=== PATIENT | male | born 1970 | race African-American/Black ===

== ENCOUNTER 2022-06-24 10:41 | Emergency (ER) | payer MEDICAID ==
[~2022-06-24] VITALS: Ht 175.3 cm; Wt 77.1 kg
--- NOTE | 2022-06-24 11:00 | NUR ---
Patient to ER bed H1 to gown for evaluation. Side rails up.
[2022-06-24 11:17] VITALS: BP_SYST 164
--- NOTE | 2022-06-24 12:00 | NUR ---
BS 152
--- NOTE | 2022-06-24 12:25 | NUR ---
DR SIDHU AT BEDSIDE
[2022-06-24] MEDS ORDERED: METF500S9 PO ×3 (12:27→12:30)
[2022-06-24] MEDS ORDERED: ATEN-41 PO (12:30)
[2022-06-24 12:40] VITALS: BP_SYST 164
--- NOTE | 2022-06-24 12:41 | NUR ---
BIB Officer [id number] in custody for medical clearance. Patient to ER bed H1 to gown for evaluation. Side rails up.
--- NOTE | 2022-06-24 12:45 | NUR ---
Patient given written and verbal discharge instructions and verbalizes understanding. ER MD discussed with patient the results and treatment provided. Patient in stable condition. ID arm band removed. Opportunity for questions provided and answered. Medication side effect fact sheet provided.
== END 2022-06-24 12:45 ==
LOC: SED 10:41
DX: Z02.89 Encounter for other administrative examinations (principal); E11.9 Type 2 diabetes mellitus without complications; I10 Essential (primary) hypertension; Z79.899 Other long term (current) drug therapy
CPT/HCPCS: 99283